=== PATIENT | male | born 1960 | race Caucasian/White ===

== ENCOUNTER 2017-11-14 14:29 | Emergency (ER) | payer OTHER ==
[~2017-11-14] VITALS: Ht 167.6 cm; Wt 72.7 kg
[~2017-11-14 14:29] MED LIST: [UNRECOGNIZED DRUG - REMARK] PO
[2017-11-14 15:28] VITALS: BP 154/98
[2017-11-14] MEDS ORDERED: METHOCARBAMOL 500 MG TABLET PO ONE (15:30)
[2017-11-14] MEDS ORDERED: KETOROLAC TROMETHAMINE 60 MG/2 ML VIAL IM ONE (15:30)
[2017-11-14] MEDS ORDERED: KETOROLAC TROMETHAMINE 10 MG TABLET PO ONE (15:45)
== END 2017-11-14 16:05 | disposition home or self-care (01) ==
LOC: EMS 14:29
DX: S39.012A Strain of muscle, fascia and tendon of lower back, initial encounter (principal); M62.830 Muscle spasm of back; I10 Essential (primary) hypertension; X58.XXXA Exposure to other specified factors, initial encounter; Y93.89 Activity, other specified; Y92.89 Other specified places as the place of occurrence of the external cause; Y99.8 Other external cause status
CPT/HCPCS: 99283; J1885

== ENCOUNTER 2021-12-08 23:19 | Emergency (ER) | payer OTHER ==
[2021-12-09] MEDS ORDERED: IBUPROFEN 600 MG TABLET PO ONE (02:30)
[2021-12-09] MEDS ORDERED: ACETAMINOPHEN 500 MG TABLET PO ONE (02:30)
[2021-12-09] MEDS ORDERED: ACET-66 PO (03:33)
[2021-12-09] MEDS ORDERED: IBUP-1554 PO (03:33)
[2021-12-09 04:25] VITALS: BP 132/76
== END 2021-12-09 04:25 | disposition home or self-care (01) ==
LOC: EMS 23:20
DX: S76.912A Strain of unspecified muscles, fascia and tendons at thigh level, left thigh, initial encounter (principal); F20.9 Schizophrenia, unspecified; I10 Essential (primary) hypertension; X58.XXXA Exposure to other specified factors, initial encounter; Y93.89 Activity, other specified; Y92.89 Other specified places as the place of occurrence of the external cause; Y99.8 Other external cause status
CPT/HCPCS: 73552; 99283

== ENCOUNTER 2022-01-01 12:17 | Emergency (ER) | payer OTHER ==
[~2022-01-01] VITALS: Ht 167.6 cm; Wt 68.2 kg
[~2022-01-01 12:17] MED LIST changes: +ACET-66 PO; +IBUP-1554 PO
[2022-01-01] MEDS ORDERED: KETOROLAC TROMETHAMINE 60 MG/2 ML VIAL IM ONE (15:15)
[2022-01-01] MEDS ORDERED: CYCL-448 PO ×2 (15:35→15:46)
[2022-01-01] MEDS ORDERED: IBUP-2070 PO ×2 (15:35→15:46)
[2022-01-01 15:42] VITALS: BP 155/92
== END 2022-01-01 15:55 | disposition home or self-care (01) ==
LOC: EMS 12:32
DX: M54.41 Lumbago with sciatica, right side (principal); I10 Essential (primary) hypertension; F20.9 Schizophrenia, unspecified
CPT/HCPCS: 99283; 96372; J1885